=== PATIENT | female | born 1955 | race Caucasian/White ===

== ENCOUNTER → 2017-07-29 | Outpatient (CLI) | payer OTHER ==
[~2017-07-29] MED LIST: LOPRESSOR50 PO; NEXIUM40 MG PO; NORCO 5-325 TA1 EACH PO; SYNTHROID100 MC1 PO
== END ==
LOC: M.RAD 10:02
DX: Z12.31 Encounter for screening mammogram for malignant neoplasm of breast (principal)

== ENCOUNTER 2018-01-23 01:02 | Inpatient (IN) | payer OTHER ==
[~2018-01-23] VITALS: Ht 170.2 cm; Wt 94.3 kg
--- NOTE | ~2018-01-23 | PROC ---
[address] [address] PROCEDURE REPORT Name: EDIL FITCH Room: [address] IN M.R.#: [id number] Admission: 01/23/18 Attend Phys: Brii Armas MD Discharge: 01/25/18 Date of : 57 Report #: [id number] THIS REPORT FOR: //name// For GI report, please see the Provation report in Perceptive 7 content. By: 0611Medical Records Staff GETACHEW /LISA
[2018-01-23 01:08] VITALS: BP 133/53
[2018-01-23] MEDS ORDERED: SYNTHROID100 MC1 PO (01:11)
[2018-01-23] MEDS ORDERED: LOPRESSOR50 PO (01:12)
[2018-01-23 01:41] LABS: ABSOLUTE BASOPHILS 0.1 thou/uL (0.0-0.2); ABSOLUTE EOSINOPHILS 0.4 thou/uL (0.0-0.7); ABSOLUTE LYMPHOCYTES 3.1 thou/uL (0.8-5.3); ABSOLUTE MONOCYTES 1.4 thou/uL (0.0-1.2); ABSOLUTE NEUTROPHILS 6.4 thou/uL (1.6-8.1); BASOPHILS 0.8 %; EOSINOPHILS 3.5 %; HEMATOCRIT 42.9 % (37.0-47.0); HEMOGLOBIN 14.1 gm/dL (12.0-15.0); LYMPHOCYTES 27.3 %; MCH 27.9 pg (26.0-34.0); MCHC 32.9 g/dL (28.0-37.0); MCV 84.7 fL (80.0-100.0); MONOCYTES 12.1 %; MPV 8.8 fl. (7.2-11.1); NUCLEATED RBCS 0 /100WBC; PLATELET COUNT* 317 thou/uL (150-400); POLYS 56.3 %; RBC 5.06 mil/uL (4.20-5.00); RDW-CV 14.1 % (10.5-14.5); WBC 11.3 thou/uL (4.0-11.0)
[2018-01-23 01:51] LABS: CALCIUM 8.9 mg/dL (8.5-10.1); CREATININE 1.1 mg/dL (0.6-1.3); POTASSIUM 3.5 mmol/L (3.5-5.1)
[2018-01-23 02:07] LABS: ALBUMIN 3.7 g/dL (3.4-5.0); TOTAL BILIRUBIN 0.3 mg/dL (<0.1-1.0); TOTAL PROTEIN 7.7 g/dL (6.4-8.2)
[2018-01-23 03:05] LABS: URINE BILIRUBIN NEGATIVE (Negative); URINE BLOOD NEGATIVE (Negative); URINE CLARITY CLEAR; URINE COLOR YELLOW; URINE GLUCOSE-RANDOM NEGATIVE (Negative); URINE KETONES NEGATIVE (Negative); URINE LEUKOCYTES-REFLEX NEGATIVE (Negative); URINE NITRITE-REFLEX NEGATIVE (Negative); URINE PROTEIN NEGATIVE (Negative); URINE UROBILINOGEN 0.2 E.U./dl (0.2-1.0)
[2018-01-23 04:31] VITALS: BP 139/69
[2018-01-23 07:45] VITALS: BP 126/61
[2018-01-23 13:55] VITALS: BP 126/61
--- NOTE | 2018-01-23 15:15 | EKG ---
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
[2018-01-23 16:35] VITALS: BP 112/56
[2018-01-23 19:35] VITALS: BP 127/61
[2018-01-24 07:55] VITALS: BP 118/55
[2018-01-24 16:30] VITALS: BP 104/52
[2018-01-24 21:10] VITALS: BP 121/61; BP 140/96
[2018-01-25 07:40] VITALS: BP 124/73
[2018-01-25 12:49] LABS: HEMATOCRIT 39.7 % (37.0-47.0); HEMOGLOBIN 12.8 gm/dL (12.0-15.0); MCH 27.6 pg (26.0-34.0); MCHC 32.3 g/dL (28.0-37.0); MCV 85.6 fL (80.0-100.0); MPV 8.3 fl. (7.2-11.1); RBC 4.64 mil/uL (4.20-5.00); RDW-CV 13.9 % (10.5-14.5); WBC 11.3 thou/uL (4.0-11.0)
[2018-01-25 13:01] VITALS: BP 124/73
[2018-01-25 13:02] LABS: ALBUMIN 3.1 g/dL (3.4-5.0); CALCIUM 8.2 mg/dL (8.5-10.1); CREATININE 1.1 mg/dL (0.6-1.3); POTASSIUM 3.5 mmol/L (3.5-5.1); TOTAL BILIRUBIN 0.5 mg/dL (<0.1-1.0); TOTAL PROTEIN 6.6 g/dL (6.4-8.2)
[2018-01-25] MEDS ORDERED: NEXIUM40 MG PO (13:41)
[2018-01-25 15:30] VITALS: BP 138/80
--- NOTE | 2018-01-27 11:09 | PATH ---
[address] [address] PATHOLOGY RPT PROCEDURE Name: JOLENE ZAFAR BRISA Room: [address] IN M.R.#: [id number] Admission: 01/23/18 Date of : 57 Discharge: 01/25/18 Report #: [id number] Path Case #: [id number] [facility] Accession Number: [id number] . 01 Material submitted: . GASTRIC BIOPSY FOR H-PYLORI . 01 Clinical history: . None provided . 02 Diagnosis: Gastric biopsy: - Mild non-specific chronic gastritis, negative for Helicobacter pylori organisms and dysplasia. (EB/db; 01/24/18) LBQ/01/24/2018 . 02 Comment: Special stain: H. pylori immuno . 02 Electronically signed: . Chris Prasad MD, Pathologist NPI- [id number] . 01 Gross description: . Received in formalin labeled "Jolene Zafar, gastric biopsy for H. pylori," are 2 segments of briceño soft tissue measuring 0.9 x 0.3 x 0.2 cm in aggregate dimensions and ranging from 0.4 to 0.5 cm in maximum dimension. The specimen is submitted entirely in cassette A1. (TSD; 01/23/2018) TOB/TOB . 02 Pathologist provided ICD-10: K29.50 . 02 CPT . 432592, R08848 Performed at: [address], [place] [id number] MD Jorge A Westbrook MD Phone: [phone] Performed at: 02 [facility] [address], [place], [place] [id number] MD Chris Prasad MD Phone: [phone]
--- NOTE | 2018-02-23 13:22 | CON ---
[address] [address] CONSULTATION Name: FITCHEDILSTEPHIE LEDEZMA Room: [address] IN M.R.#: [id number] Admission: 01/23/18 Attend Phys: Brii Armas MD Discharge: 01/25/18 Date of : 57 Report #: [id number] THIS REPORT FOR: //name// CC: Brii Null Gustavo Vardakis DATE OF SERVICE: 01/23/2018 REQUESTING PHYSICIAN: Dr. Brii Armas. REASON FOR CONSULTATION: Gastritis/biliary colic. HISTORY OF PRESENT ILLNESS: This is a pleasant 62-year-old female with past medical history of gastroesophageal reflux disease who is presenting with recurrent episodes of abdominal pain. The patient reports that this is her third episode of abdominal pain. This episode started last night around 11:00 p.m. The patient reports the pain is located in the epigastric region. It is nonradiating, it feels like it is deep seated and dull. The patient reports the pain is 10/10 in intensity and is associated with several episodes of vomiting. The patient reports emesis was clear and nonbloody, nonbilious. The patient reports she had a heavy fatty dinner last night at 6:00 p.m. The patient reports that the pain subsided after a few hours and currently she is completely pain-free. The patient reports similar episodes twice in the past. The patient also reports reflux symptoms more than three times per week, but denies any dysphagia. The patient denies other symptoms such as diarrhea or weight loss. PAST MEDICAL HISTORY: History of reflux disease. PAST SURGICAL HISTORY: Nonsignificant. FAMILY HISTORY: Nonsignificant. SOCIAL HISTORY: The patient quit smoking 13 years back and takes alcohol occasionally. Denies taking recreational drugs. REVIEW OF SYSTEMS: Comprehensive 10-point review of systems is negative except for what was mentioned in the history of present illness. PHYSICAL EXAMINATION: VITAL SIGNS: Temperature 36.5, pulse rate 72, respirations 16, blood pressure 126/61, pulse ox 98% on room air. GENERAL: The patient was alert, awake, oriented x 3. HEENT: Pupils are equal, round, reactive to light and [place] [address] CONSULTATION Name: EDIL FITCH Room: [address]#: [id number] Admission: 01/23/18 Attend Phys: Brii Armas MD Discharge: 01/25/18 Date of : 57 Report #: [id number] moist. There is no congestion. LUNGS: Clear to auscultation. CARDIOVASCULAR: Rate and rhythm regular, S1, S2 present. ABDOMEN: Belly is soft, nontender, nondistended. There is no organomegaly. Bowel sounds are present. EXTREMITIES: Warm and well perfused. There is no edema. SKIN: Dry and intact. LABORATORY DATA: WBC count 11.3, hemoglobin 14.1, hematocrit 42.9, platelet count 317. Sodium 138, potassium 3.5, chloride 103, bicarbonate 29, BUN 19, creatinine 1.1. AST 15, ALT 29, alkaline phosphatase 94, total bilirubin 0.3, lipase 211. CT abdomen with contrast, the liver, spleen, pancreas and adrenal glands are unremarkable. There is significant atrophy of the right kidney. There is mild nonspecific gallbladder distention without evidence of gallbladder wall thickening, pericholecystic fluid or cholelithiasis. There is no evidence of biliary ductal dilation. Heart is normal in caliber. Abdominal ultrasound, mildly distended gallbladder with gallbladder wall thickening measuring mm. No pericholecystic fluid or gallbladder wall tenderness is demonstrated, possible mild sludge within the gallbladder. ASSESSMENT AND PLAN: This is a very pleasant 62-year-old woman who is presenting with recurrent episodes of abdominal pain. The pain is epigastric, deep seated and dull, and itself a few hours following consumption of a heavy meal. The pain has now completely subsided. Additionally, the patient reports having reflux symptoms for several years. PROBLEMS: 1. Epigastric abdominal pain. 2. Gastroesophageal reflux disease. We will plan on proceeding with upper endoscopy to evaluate the mucosa of the upper gastrointestinal tract. Continue the patient on PPI for now. We will also check a PIPIDA scan to evaluate for gallbladder dysfunction. Further recommendations will be based on the results of the above testing. <ELECTRONICALLY SIGNED> By: Phil May MD 02/23/18 1322 1334 99Phil May MD /nt
== END 2018-01-25 17:19 | disposition home or self-care (01) | DRG 392 ==
LOC: M.ERS 01:02 → M.ORTHSURG 04:11 → M.TBA-ER 04:11 → M.ORTHSURG 04:46
PROVIDERS: Emergency Medicine; Surgery; ADMIT Internal Medicine
DX: K29.00 Acute gastritis without bleeding (principal); K21.9 Gastro-esophageal reflux disease without esophagitis; I10 Essential (primary) hypertension; E05.00 Thyrotoxicosis with diffuse goiter without thyrotoxic crisis or storm; E03.9 Hypothyroidism, unspecified; E66.9 Obesity, unspecified; Z68.32 Body mass index [BMI] 32.0-32.9, adult; Z92.3 Personal history of irradiation; Z87.891 Personal history of nicotine dependence; Z79.899 Other long term (current) drug therapy; Z80.8 Family history of malignant neoplasm of other organs or systems

== ENCOUNTER 2018-01-26 02:28 | Inpatient (IN) | payer OTHER ==
[~2018-01-26] VITALS: Ht 170.2 cm; Wt 97.1 kg
[2018-01-26] VITALS (7 sets, daily range): BP systolic 112–158; BP diastolic 47–75
[~2018-01-26 02:28] MED LIST changes: -NORCO 5-325 TA1 EACH PO
[2018-01-26 03:16] LABS: ABSOLUTE BASOPHILS 0.1 thou/uL (0.0-0.2); ABSOLUTE EOSINOPHILS 0.2 thou/uL (0.0-0.7); ABSOLUTE NEUTROPHILS 8.1 thou/uL (1.6-8.1); BASOPHILS 0.6 %; EOSINOPHILS 1.8 %; HEMATOCRIT 39.3 % (37.0-47.0); HEMOGLOBIN 12.8 gm/dL (12.0-15.0); LYMPHOCYTES 17.4 %; MCH 27.7 pg (26.0-34.0); MCHC 32.7 g/dL (28.0-37.0); MCV 84.8 fL (80.0-100.0); MONOCYTES 8.8 %; MPV 8.4 fl. (7.2-11.1); NUCLEATED RBCS 0 /100WBC; PLATELET COUNT* 228 thou/uL (150-400); POLYS 71.4 %; RBC 4.63 mil/uL (4.20-5.00); RDW-CV 13.7 % (10.5-14.5); WBC 11.3 thou/uL (4.0-11.0)
[2018-01-26 03:27] LABS: ANION GAP 8 mmol/L (7-16); BUN 13 mg/dL (7-18); CALCIUM 8.1 mg/dL (8.5-10.1); CHLORIDE 106 mmol/L (98-107); CO2 25 mmol/L (21-32); CREATININE 0.9 mg/dL (0.6-1.3); GLUCOSE 117 mg/dL (70-99); POTASSIUM 3.1 mmol/L (3.5-5.1); SODIUM 139 mmol/L (136-145)
[2018-01-26 03:34] LABS: ALBUMIN 3.1 g/dL (3.4-5.0); ALKALINE PHOSPHATASE 147 U/L (46-116); LIPASE 144 U/L (73-393); SGOT 40 U/L (15-37); SGPT 35 U/L (30-65); TOTAL BILIRUBIN 0.9 mg/dL (<0.1-1.0); TOTAL PROTEIN 6.5 g/dL (6.4-8.2); TROPONIN-I LEVEL <0.06 ng/mL (<0.06)
[2018-01-26 04:05] LABS: URINE BILIRUBIN NEGATIVE (Negative); URINE BLOOD NEGATIVE (Negative); URINE CLARITY CLEAR; URINE COLOR YELLOW; URINE GLUCOSE-RANDOM NEGATIVE (Negative); URINE KETONES TRACE (Negative); URINE LEUKOCYTES-REFLEX NEGATIVE (Negative); URINE NITRITE-REFLEX NEGATIVE (Negative); URINE PROTEIN NEGATIVE (Negative); URINE SPECIFIC GRAVITY <= 1.005 (1.005-1.030); URINE UROBILINOGEN 0.2 E.U./dl (0.2-1.0)
--- NOTE | 2018-01-26 06:30 | NUR ---
PT ADMITTED FROM ER WITH RLQ ABD PAIN, STATES 310. DENIES NAUSEA. IV FLUIDS STARTED. SEE ADMISSION ASSESSMENT AND HX.
--- NOTE | 2018-01-26 15:56 | EKG ---
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1955 Requested By: Maximiliano Lord Order Number: [id number] MD: Marcial Prather Measurements Intervals [place] Rate: 62 P: 68 AL: 185 QRS: 10 QRSD: 94 T: 9 QT: 439 QTc: 446 Interpretive Statements Sinus rhythm Left atrial enlargement Compared to ECG 01/23/2018 13:43:31 Atrial abnormality now present Electronically Signed On 01-26-2018 15:55:49 CDT by Marcial Prather [email or web address] <ELECTRONICALLY SIGNED> By: Marcial Prather MD, [facility] 01/26/18 1555 Marcial Prather MD, [facility] /EPI
--- NOTE | 2018-01-26 18:27 | NUR ---
PAIN MANAGED WELL WITH IV PAIN MED. SIMETHICONE GIVEN FOR BLOATING FEELING. NO OTHER C/O. PT REPORTS TENDERNESS THROUGHOUT ABD. PT REPORTED INCREASE PAIN WITH CL DIET. PT ABLE TO MAKE NEEDS KNOWN, CALL LIGHT IN REACH.
[2018-01-27] VITALS: BP 139/66
[2018-01-27 04:27] LABS: HEMATOCRIT 34.9 % (37.0-47.0); HEMOGLOBIN 11.8 gm/dL (12.0-15.0); MCH 28.2 pg (26.0-34.0); MPV 8.3 fl. (7.2-11.1); RBC 4.2 mil/uL (4.20-5.00); RDW-CV 13.5 % (10.5-14.5); WBC 7.9 thou/uL (4.0-11.0)
[2018-01-27 04:40] LABS: ALBUMIN 2.7 g/dL (3.4-5.0); CALCIUM 7.6 mg/dL (8.5-10.1); CREATININE 0.9 mg/dL (0.6-1.3); POTASSIUM 3.7 mmol/L (3.5-5.1); TOTAL BILIRUBIN 0.8 mg/dL (<0.1-1.0); TOTAL PROTEIN 5.3 g/dL (6.4-8.2)
--- NOTE | 2018-01-27 06:34 | NUR ---
Alert and oriented x 4. She is up independently in her room. She did take a shower at bedtime. Vitals are stable. She has had IV fentanyl x 3 for pain. She did sign her consent for surgery this am. She's had nothing by mouth since midnight. She has slept intermittenly.
[2018-01-27 09:22] VITALS: BP 139/66
[2018-01-27 09:34] VITALS: BP 137/68
[2018-01-27 09:58] VITALS: BP 144/75
[2018-01-27 16:39] VITALS: BP 125/61
--- NOTE | 2018-01-27 17:34 | NUR ---
ASSUMED CARE OF PATIENT AFTER MORNING REPORT. ALERT AND ORIENED X4. ASSESSMENT COMPLETED AND CHARTED. VSS ON ROOM AIR. NO COMPLAINTS OF PAIN, NAUSEA, OR SOA UPON MORNING ASSESSMENT. PATEINT LEFT THE UNTI FOR PACU AT APPROX 0930 AND RETURNED TO THE UNIT AT 1235. ALERT AND ORINETED X4, VITALS STABLE ON 3 LITERS 02, TITRATED DOWN TO ROOM AND VITALS REMAIN STABLE. MINIMAL COMPLAINTS OF PAIN THIS AFTERNOON. PATIENT STARTED ON CLEARS AND HESITANT TO EAT MUCH BECAUSE SHES AFRAID SHE WILL BECOME NAUSEOUS, ENCOURAGE TO TAKE IT SLOWLY. HOURLY ROUNDS MAINTAINED WHILE ON THE UNIT, CALL LIGHT IS WITHIN REACH AND NURSING WILL CONTINUE TO MONITOR.
[2018-01-27 20:11] VITALS: BP 125/61
[2018-01-27] MEDS ORDERED: NORCO 5-325 TA1 EACH PO (20:15)
--- NOTE | 2018-01-28 01:37 | NUR ---
ALERT AND ORIENTED X4. GIVEN PO PAIN MEDICATION PRIOR SHIFT AND PATIENT STATED ABDOMINAL TOLERABLE. PATIENT ATE 50% OF A BOX LUNCH WITHOUT NAUSEA OR VOMITING. PATIENT UP AMBULATING IN ROOM WITHOUT DIFFICULTY. VOIDING WITHOUT DIFFICULTY. LAP SITES ON ABDOMEN APROXIMATED WELL. PATIENT WANTING TO GO HOME DR NOTIFIED. NEW ORDERS NOTED. IV D/C WITHOUT DIFFICULTY. PATIENT DISCHARGED VIA W/C AT 2350.
--- NOTE | 2018-02-12 09:18 | OP ---
[address] [address] OPERATIVE REPORT Name: EDIL FITCH Room: [address]#: [id number] Admission: 01/26/18 Attend Phys: Mario Orozco MD Discharge: 01/27/18 Date of : 57 Report #: [id number] THIS REPORT FOR: //name// CC: Mario Chen DATE OF SERVICE: 01/27/2018 PREOPERATIVE DIAGNOSIS: Acute cholecystitis. POSTOPERATIVE DIAGNOSIS: Acute cholecystitis. FINDINGS: Distended, thick-walled gallbladder with a small amount of pericholecystic fluid. SURGEON: Camilla Gao DO COSURGEON: Nilo Jimenes, PGY-1 WATER PLANT PUMP OPERATOR SUPERVISOR: JOHN Rivera. PROCEDURE PERFORMED: Laparoscopic cholecystectomy. ANESTHESIA: General endotracheal and local. ESTIMATED BLOOD LOSS: 5. DRAINS: None. SPECIMENS: Gallbladder. COMPLICATIONS: None. IMPLANTS: None. CONDITION: Stable. DISPOSITION: PACU to the floor. HISTORY OF PRESENT ILLNESS: The patient is a very pleasant 62-year-old female who presented to the ER with complaint of right upper quadrant abdominal pain. She was found to have a distended gallbladder, which was thick-walled with some pericholecystic fluid on an ultrasound. She was then consented for laparoscopic cholecystectomy. Risks discussed included bleeding; infection; pain; scar formation; injury to bowel, liver or bile duct; hernia at the incision sites; need for an open procedure and risks of general anesthesia. The patient [facility] [address] [place] [address] OPERATIVE REPORT Name: EDIL FITCH Room: [address] IN ..#: [id number] Admission: 01/26/18 Attend Phys: Mario Orozco MD Discharge: 01/27/18 Date of : 57 Report #: [id number] understood these risks and elected to proceed. DESCRIPTION OF PROCEDURE: The patient was brought to the Operating Room. She was laid supine on the operating room table. SCDs were placed on bilateral lower extremities. Ancef was given in the perioperative period. General endotracheal anesthesia was induced by anesthesia without difficulty. Abdomen was prepped and draped in standard sterile fashion. Timeout was performed to verify patient and procedure. 10 mL of 0.5% Marcaine were injected in the infraumbilical area. Curvilinear incision was made with an 11-blade. Cautery was used for hemostasis. S retractor was used to visualize the fascia. Fascia was grasped and elevated between 2 Kochers. Fascia was incised using cautery. Peritoneum was bluntly entered using a Kayley clamp. Finger was introduced into the abdomen to assure that there were no aram-incisional adhesions, none were identified. Two stitches of 0 Vicryl were placed on the fascia. Ryland trocar was introduced and secured with 0 Vicryl stitches. Abdomen was insufflated. The patient was placed head up and tilted left side down. Camera was introduced and a brief anterior abdominal exploration was undertaken with findings of a few minimal wispy adhesions overlying the liver. Gallbladder was moderately distended and thick-walled with some minimal pericholecystic fluid. An 11-mm trocar was introduced in the subxiphoid area as well as two 5 mm trocars in the right upper quadrant, all under direct visualization. Gallbladder was grasped and raised towards the patient's head. There were some dense adhesions overlying the gallbladder, between the gallbladder and the omentum. These were taken down with a combination of blunt and cautery dissection until the triangle of Calot was reached. Peritoneum overlying the triangle was incised using cautery. Duct and artery were then both easily visualized, both were circumferentially dissected free using a [place] dissector and tissues posterior to the artery were removed. Common bile duct could be seen below, this then afforded the critical view. Duct and artery were both doubly clipped and ligated. Gallbladder was then removed from the liver bed utilizing cautery with no further difficulty. Specimen was placed within an EndoCatch bag. Liver bed was inspected, it was hemostatic. Clips were inspected, they were intact. There was no bleeding or leakage noted from the area of the clips. Liver was allowed to fall into its anatomic position. Trocars were then removed under direct visualization. There was no bleeding noted from the peritoneum. Abdomen was then completely desufflated. Ryland trocar was removed and EndoCatch bag was removed with specimen intact after extending the skin incision due to the size of the gallbladder. Specimen was handed off. Kochers were then placed on the fascia of the infraumbilical port. Previously placed 0 Vicryl stitch was removed and a #0 Vicryl stitch was placed in a [id number]-knadk fashion with excellent approximation of the fascia. An additional 10 mL of 0.5% Marcaine were injected in the fascia. This wound was closed in a layered fashion using deep and superficial stitches of 3-0 Vicryl in inverted interrupted fashion. All skin wounds were closed with 4-0 Monocryl. A total of 50 mL of 0.5% Marcaine were used to anesthetize the wounds. Wounds were then cleansed and covered with Mastisol, Steri-Strips, 4 x 4's, and Tegaderm. The patient was [address] [address] OPERATIVE REPORT Name: EDIL FITCH Room: [address] IN M.R.#: [id number] Admission: 01/26/18 Attend Phys: Mario Orozco MD Discharge: 01/27/18 Date of : 57 Report #: [id number] then allowed to awake from anesthesia, was extubated and transported to the recovery room with no further difficulties. Counts were correct x 2 at the conclusion of the case. <ELECTRONICALLY SIGNED> By: Camilla Gao DO 02/12/18917 1136 1157Chcarter Gao DO /nt
== END 2018-01-27 23:50 | disposition home or self-care (01) | DRG 418 ==
LOC: M.ERS 02:28 → M.2W 04:26 → M.TBA-ER 04:26 → M.2W 05:35 → M.ORTHSURG 01-27 07:43
PROVIDERS: Family Medicine; ADMIT Internal Medicine
PROC: 0FT44ZZ Resection of Gallbladder, Percutaneous Endoscopic Approach (ICD-10-PCS; principal; 2018-01-27)
DX: K81.0 Acute cholecystitis (principal); B17.9 Acute viral hepatitis, unspecified; E44.1 Mild protein-calorie malnutrition; J98.11 Atelectasis; I10 Essential (primary) hypertension; E03.9 Hypothyroidism, unspecified; K21.9 Gastro-esophageal reflux disease without esophagitis; Z79.899 Other long term (current) drug therapy; Z80.8 Family history of malignant neoplasm of other organs or systems

== ENCOUNTER → 2019-05-08 | Outpatient (CLI) | payer OTHER ==
[~2019-05-08] MED LIST changes: +NORCO 5-325 TA1 EACH PO
== END ==
LOC: M.RAD 14:07
DX: Z12.31 Encounter for screening mammogram for malignant neoplasm of breast (principal)